=== PATIENT | male | born 2005 | race African-American/Black ===

== ENCOUNTER 2024-07-23 11:32 | Emergency (ER) | payer MEDICAID ==
[~2024-07-23] VITALS: Ht 175.3 cm; Wt 62.0 kg
[2024-07-23 11:54] VITALS: TEMP 98.3; O2SAT 98
[2024-07-23] MEDS ORDERED: AMOX-494 MT (14:33)
[2024-07-23] MEDS ORDERED: IBUP-2029 MT (14:33)
[2024-07-23] MEDS: DEXAMETHASONE 4MG/ML 1ML VIAL IM ONE (14:35)
[2024-07-23 14:36] VITALS: BP 110/80; PULSE 80; RESP 15; O2SAT 99
== END 2024-07-23 14:50 | disposition home or self-care (01) ==
LOC: ER 11:32
DX: J02.9 Acute pharyngitis, unspecified (principal)
CPT/HCPCS: 99283; 87430; 87070; 96372; J1100